=== PATIENT | female | born 1985 | race Caucasian/White ===

== ENCOUNTER 2018-02-04 12:12 | Inpatient (IN) | payer BC ==
[2018-02-04] MEDS ORDERED: Lactated Ringers 500 ML IV ONE (12:29)
[2018-02-04] MEDS ORDERED: Misoprostol 400 MCG (4 X 100 MCG TAB) RECTAL PRN (12:29)
[2018-02-04] MEDS ORDERED: Calcium Carbonate 500 MG Tab.Chew PO PRN (12:29)
[2018-02-04] MEDS ORDERED: Sodium Chloride 0.9% 10 ML Syringe FLUSH PRN (12:29)
[2018-02-04] MEDS ORDERED: Misoprostol 25 MCG (1/4 of 100 MCG) Tab VAG PRN (12:29)
[2018-02-04] MEDS ORDERED: fentaNYL 100 MCG/2 ML SDV IVPUSH PRN (12:29)
[2018-02-04] MEDS ORDERED: Tranexamic Acid 1,000 MG in Sodium Chloride 0.9% 100 ML IV PRN (12:29)
[2018-02-04] MEDS ORDERED: Lidocaine 1% 30 ML SDV INJECT PRN (12:29)
[2018-02-04] MEDS ORDERED: Ondansetron 4 MG/2 ML SDV IV PRN (12:29)
[2018-02-04] MEDS ORDERED: Carboprost Tromethamine 250 MCG/1 ML Amp IM PRN (12:29)
[2018-02-04] MEDS ORDERED: Methylergonovine 0.2 MG/1 ML Amp IM PRN (12:29)
[2018-02-04] MEDS ORDERED: Oxytocin/Normal Saline 30 UNIT/500 ML BAG IV SCH (12:30)
--- NOTE | 2018-02-04 12:40 | PCM.LDHP ---
L&D History of Present Illness - General Date of Service: 02/04/18 Admit Problem/Dx: Patient Status Order with Admit Dx/Problem 02/04/18 12:30 Patient Status [ADT] Routine Admission Diagnosis/Problem Admission Diagnosis/Problem care Source of Information: Patient History Limitations: Reports: No Limitations - History of Present Illness Introduction:: 32-year-old at 39w5d presents from clinic for admission for IOL. Patient has been having headaches persistently over the past 5 days. Her blood pressure has also started to increase. She had a reading last night (taken by a lock up worker) of 140/100. In clinic, her BP was 138/92. Urine was negative for protein; however, based on headache, worsening BP and gestational age, the decision was made to proceed with induction. has otherwise been uncomplicated. Baby has been active. Patient has had increased [place] contractions this morning. No vaginal bleeding or leaking of fluid. - Related Data Allergies/Adverse Reactions: Allergies Allergy/AdvReac Type Severity Reaction Status Date / Time No Known Allergies Allergy Verified 02/04/18 12:49 Home Medications: Home Meds Calcium Carbonate/Vitamin D3 [Calcium 500 mg Chewable Tablet] 2 tab.chew PO DAILY 02/04/18 [History] #103/Iron Fumarate/Fa [ ] 1 tab PO DAILY 02/04/18 [ History] Past Medical History Psychiatric History: Reports: Anxiety, Depression - Past Surgical History Head Surgeries/Procedures: Reports: None Social & Family History - Family History Cardiac: Reports: CAD (Maternal grandfather, Paternal grandmother, Paternal grandfather), High Cholesterol (Father), Hypertension (Father) Psychiatric: Reports: Depression (Sister) Endocrine/Metabolic: Reports: Osteoporosis (Mother, Maternal grandmother) Oncologic: Reports: Leukemia (Paternal Grandfather) H&P Review of Systems - Review of Systems: Review Of Systems: See Below General: Reports: No Symptoms HEENT: Reports: Headaches, Sinus Congestion Pulmonary: Reports: No Symptoms Cardiovascular: Reports: No Symptoms Gastrointestinal: Reports: No Symptoms Genitourinary: Reports: No Symptoms Musculoskeletal: Reports: No Symptoms Skin: Reports: No Symptoms L&D Exam - Exam Exam: See Below - OB Specific Heart Tones: Present Heart Tones per Min: 150 Presentation: Vertex - Rollins Score Rollins Score Cervix Position: Posterior Rollins Score Consistency: Soft Rollins Score Effacement: 51-70% Rollins Score Dilation: 1-2 cm Rollins Score Infant's Station: -1 ,0 Rollins Score Total: 7 - Exam General: Alert, Oriented Lungs: Clear to Auscultation, Normal Respiratory Effort Cardiovascular: Regular Rate, Regular Rhythm. No: Irregular Rhythm, Systolic Murmur, Diastolic Murmur Extremities: Pedal Edema (2+ to lower extremities bilaterally) Skin: Warm, Dry, Intact ( ) - Problem List (1) care in third trimester SNOMED Code(s): 840944554, 37183887, 69363557, 989922129, 660892996 ICD Code: Z34.93 - ENCNTR FOR SUPRVSN OF NORMAL PREG, UNSP, THIRD TRIMESTER Status: Acute Current Visit: Yes (2) Elevated blood pressure affecting in third trimester, antepartum SNOMED Code(s): 42950704, 39062406, 551789378 ICD Code: O16.3 - UNSPECIFIED MATERNAL HYPERTENSION, THIRD TRIMESTER Status : Acute Current Visit: Yes (3) Rh negative status during in third trimester SNOMED Code(s): 961404139 ICD Code: O09.893 - SUPERVISION OF OTHER HIGH RISK PREGNANCIES, THIRD TRIMESTER; Z67.91 - UNSPECIFIED BLOOD TYPE, RH NEGATIVE Status: Acute Current Visit: Yes Problem List Initiated/Reviewed/Updated: Yes Orders Last 24hrs: Active Orders 24 hr Category Date Time Status Patient Status [ADT] Routine ADT 02/04/18 12:30 Ordered Communication Order [RC] ASDIRECTED Care 02/04/18 12:30 Ordered Communication Order [RC] ASDIRECTED Care 02/04/18 12:30 Ordered Communication Order [RC] ASDIRECTED Care 02/04/18 12:30 Ordered Communication Order [RC] ASDIRECTED Care 02/04/18 12:30 Ordered Communication Order [RC] ASDIRECTED Care 02/04/18 12:30 Ordered Communication Order [RC] ASDIRECTED Care 02/04/18 12:30 Ordered Heart Tones [RC] PER UNIT ROUTINE Care 02/04/18 12:30 Ordered Non Stress Test [RC] PER UNIT ROUTINE Care 02/04/18 12:30 Ordered Notify Provider Vital Signs OB [RC] ASDIRECTED Care 02/04/18 12:30 Ordered Notify Provider [RC] PRN Care 02/04/18 12:30 Ordered Notify Provider [RC] PRN Care 02/04/18 12:30 Ordered Notify Provider [RC] PRN Care 02/04/18 12:30 Ordered Notify Provider [RC] STAT Care 02/04/18 12:30 Ordered Pump Management, Intrathecal [RC] ASDIRECTED Care 02/04/18 12:29 Ordered Up ad Quyen [RC] ASDIRECTED Care 02/04/18 12:30 Ordered Vaginal Exam [RC] PRN Care 02/04/18 12:30 Ordered Vital Signs [RC] PER UNIT ROUTINE Care 02/04/18 12:30 Ordered Clear Liquid Diet [DIET] Diet 02/04/18 Dinner Ordered Regular Diet [DIET] Diet 02/04/18 Lunch Ordered CBC W/O DIFF,HEMOGRAM [HEME] Routine Lab 02/04/18 12:30 Ordered Acetaminophen [Tylenol] Med 02/04/18 12:29 Ordered 650 mg PO Q4H PRN Calcium Carbonate [Tums] Med 02/04/18 12:29 Ordered 1,000 mg PO Q2HR PRN Carboprost Tromethamine [Hemabate DS] Med 02/04/18 12:29 Ordered 250 mcg IM ASDIRECTED PRN Lactated Ringers @ 125 MLS/HR(1000ml) Med 02/04/18 12:30 Ordered Lactated Ringers [Ringers, Lactated] 1,000 ml IV ASDIRECTED Lactated Ringers [Ringers, Lactated] 500 ml Med 02/04/18 12:29 Ordered IV .BOLUS Lidocaine 1% [Xylocaine-MPF 1%] Med 02/04/18 12:29 Ordered 10 ml INJECT ASDIRECTED PRN Methylergonovine [Methergine] Med 02/04/18 12:29 Ordered 0.2 mg IM ASDIRECTED PRN Ondansetron [Zofran] Med 02/04/18 12:29 Ordered 4 mg IV Q4H PRN Oxytocin 30 Units in NS @ 2 MUNITS/MIN(500ml) Med 02/04/18 12:30 Ordered Oxytocin/Normal Saline [Pitocin in NS 30 UNIT/500 ML] 30 unit in 500 ml IV TITRATE Sodium Chloride 0.9% [Saline Flush] Med 02/04/18 12:29 Ordered 10 ml FLUSH ASDIRECTED PRN Tranexamic Acid [Cyklokapron] 1,000 mg Med 02/04/18 12:29 Ordered Sodium Chloride 0.9% [Normal Saline] 100 ml IV ONETIME fentaNYL [Sublimaze] Med 02/04/18 12:29 Ordered 50 mcg IVPUSH Q1H PRN miSOPROStol [Cytotec] Med 02/04/18 12:29 Ordered 25 mcg VAG Q4H PRN miSOPROStol [Cytotec] Med 02/04/18 12:29 Ordered 800 mcg RECTAL ASDIRECTED PRN Saline Lock Insert [OM.PC] Routine Oth 02/04/18 12:30 Ordered Resuscitation Status Routine Resus Stat 02/04/18 12:29 Ordered Assessment/Plan Comment:: 32-year-old at 39w5d for elevated blood pressure and headache (not gestational HTN) 1. Admit to L&D for IOL 2. Place Cytotec when able 3. AROM when able. Patient would like to avoid pitocin if possible. If needed , will increase slowly. 4. Patient plans for intrathecal for pain management. 5. Monitor BP. Will obtain PIH labs if persistently elevatd. 6. Expectant management. Anticipate . Gail Torres MD
[2018-02-04] MEDS ORDERED: Nalbuphine 10 MG/1 ML Vial IV PRN (12:56)
[2018-02-04] MEDS ORDERED: Nalbuphine 10 MG/1 ML Vial IM PRN (12:56)
[2018-02-04] MEDS ORDERED: Bupivacaine 0.75%/D5W 2 ML Amp ONE (17:26)
[2018-02-04] MEDS ORDERED: EPINEPHrine 1 MG/ML SDV ONE (17:26)
[2018-02-04] MEDS ORDERED: fentaNYL 100 MCG/2 ML SDV ONE (17:26)
[2018-02-04] MEDS: Lactated Ringers 1,000 ML IV SCH ×2 (17:52→18:25)
--- NOTE | 2018-02-04 18:04 | PCM.SN ---
- Free Text/Narrative Note: Intrathecal. Sitting position, sterile prep and drape. 1% lidocaine w bicarb for skinwheal to L3 L4 interspace and L2 L3 interspace. Introducer and 24 ga pencan to L2 L3 x 2, L3 L4 x3 attempts. Pos CSF at L3 L4 interspace. 0.1 ml 1: 1000 pf Epi, 20 mcg pf sufenta, 30 mcg pf fentanyl, 6 mg of 0.75% pf bupivacaine and 0.4 ml pf ns injected after CSF aspiration. Pt to L lateral position. Procedure time 1725 to 1810
[2018-02-04] MEDS ORDERED: Famotidine 20 MG/2 ML SDV IVPUSH STA (19:36)
[2018-02-04] MEDS ORDERED: Simethicone 80 MG Tab.Chew PO PRN (22:01)
[2018-02-04] MEDS ORDERED: Benzocaine/Menthol 20%-0.5% Spray 56 GM Canister TOP PRN (22:01)
--- NOTE | 2018-02-04 22:10 | PCM.DEL ---
L & D Note - General Info Date of Service: 02/04/18 Mother's Due Date: 02/06/18 - Delivery Note Labor: Augmented by ARM Cervical Ripening Method: Misoprostil Delivery Outcome: Livebirth Infant Delivery Method: Spontaneous Vaginal Delivery-Single Presentation: Vertex Nuchal Cord: None Anesthesia Type: Local, Intrathecal Anesthetic: Lidocaine (Xylocaine) 1% Plain Local Anesthetic Volume: 4cc Amniotic Fluid Description: Clear Episiotomy Type: None Laceration: 2nd Degree, Vaginal Suture type: Vicryl Suture size: 3-0 Placenta: Intact, Spontaneous Cord: 3 Vessels Estimated Blood Loss: 200 Resuscitation Needed: No : Bulb Syringe, Stimulated, Warmed Score 1 min: 8 Score 5 min: 9 Delivery Comments (Free Text/Narrative):: 32-year-old, now , at 39w5d presented to L&D for induction of labor due to headaches and elevate BP without diagnosis of gestational hypertension. 25 mcg of Cytotec was placed. Patient progressed to 7 cm dilation over the next 5 hours. AROM was performed for large amount of clear fluid. Patient received an intrathecal for pain control. She progressed to complete dilation. After pushing for 10 minutes, patient delivered a viable male infant with Apgars of 8 and 9 at 1 and 5 minutes respectively. Baby was placed on mother's chest. Cord was left intact until pulsation ceased. Cord was then clamped x2 and cut. Placenta delivered approximately 8 minutes later and was noted to be intact. Pitocin was started per protocol. A superficial laceration at the apex of the labia minora was noted but was hemostatic so no repair was performed. A second degree vaginal laceration was repaired in the usual fashion. Uterus was noted to be firm, and bleeding was appropriate. Patient tolerated the procedure well , and there were no immediate complications. - General Info Date of Service: 02/04/18 - Patient Data Vitals - Most Recent: Last Vital Signs Temp 36.7 C 02/04/18 18:15 Pulse 81 02/04/18 18:30 Resp 18 02/04/18 18:15 BP 90/46 L 02/04/18 18:30 Pulse Ox 94 L 02/04/18 17:30 Weight - Most Recent: 127.459 kg Lab Results Last 24 Hours: Laboratory Results - last 24 hr 02/04/18 Range/Units 13:13 WBC 10.8 H (5.0-10.0) 10^3/uL RBC 4.37 (4.2-5.4) 10^6/uL Hgb 12.9 (12.0-16.0) g/dL Hct 38.1 (37.0-47.0) % MCV 87.2 (80-100) fL MCH 29.5 (27.0-34.0) pg MCHC 33.9 (33.0-35.0) g/dL Plt Count 259 (150-450) 10^3/uL Med Orders - Current: Current Medications Acetaminophen (Tylenol) 650 mg PO Q4H PRN PRN Reason: Pain (Mild 1-3) and fever Calcium Carbonate/Glycine (Tums) 1,000 mg PO Q2HR PRN PRN Reason: Indigestion Carboprost Tromethamine (Hemabate Ds) 250 mcg IM ASDIRECTED PRN PRN Reason: HEMORRHAGE Tranexamic Acid 1,000 mg/ (Sodium Chloride) 110 mls @ 660 mls/hr IV ONETIME PRN PRN Reason: Bleeding Oxytocin/Sodium Chloride (Pitocin In Ns 30 Unit/500 Ml) 30 unit in 500 mls @ 2 mls/hr IV TITRATE KATHERYN; Protocol Last Titration: 02/04/18 21:56 Dose: 250 munits/min, 250 mls/hr Methylergonovine Maleate (Methergine) 0.2 mg IM ASDIRECTED PRN PRN Reason: Hemorrhage Misoprostol (Cytotec) 800 mcg RECTAL ASDIRECTED PRN PRN Reason: Hemorrhage Misoprostol (Cytotec) 25 mcg VAG Q4H PRN PRN Reason: cervical ripening Last Admin: 02/04/18 13:31 Dose: 25 mcg Nalbuphine HCl (Nubain) 20 mg IM Q3H PRN PRN Reason: Pain Nalbuphine HCl (Nubain) 10 mg IV Q3H PRN PRN Reason: Pain Ondansetron HCl (Zofran) 4 mg IV Q4H PRN PRN Reason: Nausea/Vomiting Last Admin: 02/04/18 17:15 Dose: 4 mg Sodium Chloride (Saline Flush) 10 ml FLUSH ASDIRECTED PRN PRN Reason: Keep Vein Open Discontinued Medications Bupivacaine HCl/Dextrose (Marcaine 0.75% Spinal) Confirm Administered Dose 2 ml .ROUTE .STK-MED ONE Stop: 02/04/18 17:27 Epinephrine HCl (Adrenalin) Confirm Administered Dose 1 mg .ROUTE .STK-MED ONE Stop: 02/04/18 17:27 Famotidine (Pepcid) 20 mg IVPUSH ONETIME STA Stop: 02/04/18 19:37 Last Admin: 02/04/18 19:46 Dose: 20 mg Fentanyl (Sublimaze) 50 mcg IVPUSH Q1H PRN PRN Reason: Pain (moderate 4-6) Last Admin: 02/04/18 17:52 Dose: 50 mcg Fentanyl (Sublimaze) Confirm Administered Dose 100 mcg .ROUTE .STK-MED ONE Stop: 02/04/18 17:27 Lactated Ringer's (Ringers, Lactated) 500 mls @ 999 mls/hr IV .BOLUS ONE Stop: 02/04/18 12:59 Last Admin: 02/04/18 17:16 Dose: 999 mls/hr Lactated Ringer's (Ringers, Lactated) 1,000 mls @ 125 mls/hr IV ASDIRECTED KATHERYN Last Admin: 02/04/18 18:25 Dose: 125 mls/hr Lidocaine HCl (Xylocaine-Mpf 1%) 10 ml INJECT ASDIRECTED PRN PRN Reason: Perineal Repair Last Admin: 02/04/18 21:21 Dose: 10 ml Sodium Bicarbonate (Sodium Bicarbonate 4.2%) Confirm Administered Dose 5 meq .ROUTE .STK-MED ONE Stop: 02/04/18 17:27 Sufentanil Citrate (Sufenta) Confirm Administered Dose 50 mcg .ROUTE .STK-MED ONE Stop: 02/04/18 17:27 - Problem List & Annotations (1) care in third trimester SNOMED Code(s): 591472271, 55764558, 63083081, 716716552, 729029251 Code(s): Z34.93 - ENCNTR FOR SUPRVSN OF NORMAL PREG, UNSP, THIRD TRIMESTER Status: Acute Current Visit: Yes (2) Elevated blood pressure affecting in third trimester, antepartum SNOMED Code(s): 63662918, 72795089, 186683464 Code(s): O16.3 - UNSPECIFIED MATERNAL HYPERTENSION, THIRD TRIMESTER Status : Acute Current Visit: Yes (3) Rh negative status during in third trimester SNOMED Code(s): 119099976 Code(s): O09.893 - SUPERVISION OF OTHER HIGH RISK PREGNANCIES, THIRD TRIMESTER; Z67.91 - UNSPECIFIED BLOOD TYPE, RH NEGATIVE Status: Acute Current Visit: Yes (4) (normal spontaneous vaginal delivery) SNOMED Code(s): 84696265 Code(s): O80 - ENCOUNTER FOR FULL-TERM UNCOMPLICATED DELIVERY Status: Acute Current Visit: Yes (5) Obstetric vaginal laceration SNOMED Code(s): 057153014, 948746770 Code(s): O71.4 - OBSTETRIC HIGH VAGINAL LACERATION ALONE Status: Acute Current Visit: Yes - Problem List Review Problem List Initiated/Reviewed/Updated: Yes - My Orders Last 24 Hours: My Active Orders 02/04/18 12:29 Acetaminophen [Tylenol] 650 mg PO Q4H PRN Calcium Carbonate [Tums] 1,000 mg PO Q2HR PRN Carboprost Tromethamine [Hemabate DS] 250 mcg IM ASDIRECTED PRN Methylergonovine [Methergine] 0.2 mg IM ASDIRECTED PRN Ondansetron [Zofran] 4 mg IV Q4H PRN Sodium Chloride 0.9% [Saline Flush] 10 ml FLUSH ASDIRECTED PRN Tranexamic Acid [Cyklokapron] 1,000 mg Sodium Chloride 0.9% [Normal Saline] 100 ml IV ONETIME miSOPROStol [Cytotec] 25 mcg VAG Q4H PRN miSOPROStol [Cytotec] 800 mcg RECTAL ASDIRECTED PRN Resuscitation Status Routine 02/04/18 12:30 Patient Status [ADT] Routine Notify Provider Vital Signs OB [RC] ASDIRECTED Notify Provider [RC] PRN Notify Provider [RC] PRN Notify Provider [RC] STAT Oxytocin/Normal Saline [Pitocin in NS 30 UNIT/500 ML] 30 unit in 500 ml IV TITRATE Saline Lock Insert [OM.PC] Routine 02/04/18 12:56 Nalbuphine [Nubain] 10 mg IV Q3H PRN Nalbuphine [Nubain] 20 mg IM Q3H PRN 02/04/18 22:01 Up ad Quyen [RC] ASDIRECTED Vital Signs [RC] PFP Benzocaine/Menthol [Dermoplast Pain Relief [place]] See Dose Instructions TOP Q4H PRN Docusate Sodium [Colace] 100 mg PO BID PRN Ibuprofen [Motrin] 800 mg PO Q8H PRN Simethicone 80 mg PO Q4H PRN Assess Lochia [WOMSER] Per Unit Routine Assess Uterine Involution [WOMSER] Per Unit Routine Breast Pump [WOMSER] Per Unit Routine Ice Therapy [OM.PC] Per Unit Routine Perineal Care [OM.PC] Per Unit Routine Saline Lock Insert [OM.PC] Urgent Sitz Bath [OM.PC] Per Unit Routine 02/04/18 Lunch Regular Diet [DIET] 02/05/18 09:00 Vit with Ca/FA/Iron [ Plus Iron] 1 each PO DAILY - Assessment Assessment:: 32-year-old now status post at 39w5d - Plan Plan:: 1. Initiate routine orders 2. Mother plans to breastfeed 3. Monitor BP 4. Anticipate discharge 02/06/18 Gail Torres MD
[2018-02-04] MEDS: Docusate Sodium 100 MG Cap PO PRN (22:56)
[2018-02-04] MEDS: Ibuprofen 800 MG Tab PO PRN (22:56)
[2018-02-04] MEDS: Acetaminophen 325 MG Tab PO PRN (22:59)
[2018-02-05] MEDS: Acetaminophen 325 MG Tab PO PRN ×3 (05:48→17:21)
[2018-02-05] MEDS: Ibuprofen 800 MG Tab PO PRN ×2 (05:50→14:44)
[2018-02-05] MEDS: Docusate Sodium 100 MG Cap PO PRN (08:57)
[2018-02-05] MEDS: Prenatal Multivitamin with Calcium/Folic Acid/Iron Tab PO SCH (08:57)
--- NOTE | 2018-02-05 09:39 | PCM.PNPP ---
- General Info Date of Service: 02/05/18 Subjective Update: 32-year-old PPD#1 status post . Patient is doing well. Bleeding has decreased. She is sore but feels better with Tylenol/ibuprofen. Urinating without difficulty. Ambulating. Tolerating a general diet. No fever, chills, dizziness or lightheadedness. Functional Status: Reports: Pain Controlled, Tolerating Diet, Ambulating, Urinating - Review of Systems General: Reports: No Symptoms HEENT: Reports: No Symptoms Pulmonary: Reports: No Symptoms Cardiovascular: Reports: No Symptoms Gastrointestinal: Reports: No Symptoms Genitourinary: Reports: No Symptoms Musculoskeletal: Reports: Back Pain ( mild) Skin: Reports: No Symptoms - General Info Date of Service: 02/05/18 - Patient Data Vital Signs - Most Recent: Last Vital Signs Temp 36.7 C 02/05/18 09:06 Pulse 75 02/05/18 09:06 Resp 16 02/05/18 09:06 BP 131/82 02/05/18 09:06 Pulse Ox 100 02/05/18 09:06 Weight - Most Recent: 127.459 kg I&O - Last 24 Hours: Intake & Output 02/04/18 02/05/18 02/05/18 22:59 06:59 14:59 Intake Total 1500 Output Total 400 Balance 1100 Lab Results - Last 24 Hours: Laboratory Results - last 24 hr 02/04/18 Range/Units 13:13 WBC 10.8 H (5.0-10.0) 10^3/uL RBC 4.37 (4.2-5.4) 10^6/uL Hgb 12.9 (12.0-16.0) g/dL Hct 38.1 (37.0-47.0) % MCV 87.2 (80-100) fL MCH 29.5 (27.0-34.0) pg MCHC 33.9 (33.0-35.0) g/dL Plt Count 259 (150-450) 10^3/uL Med Orders - Current: Current Medications Acetaminophen (Tylenol) 650 mg PO Q4H PRN PRN Reason: Pain (Mild 1-3) and fever Last Admin: 02/05/18 05:48 Dose: 650 mg Benzocaine/Menthol (Dermoplast Pain Relief [place]) 0 gm TOP Q4H PRN PRN Reason: Perineal comfort measures Last Admin: 02/04/18 23:00 Dose: 1 spray Calcium Carbonate/Glycine (Tums) 1,000 mg PO Q2HR PRN PRN Reason: Indigestion Carboprost Tromethamine (Hemabate Ds) 250 mcg IM ASDIRECTED PRN PRN Reason: HEMORRHAGE Docusate Sodium (Colace) 100 mg PO BID PRN PRN Reason: Constipation Last Admin: 02/05/18 08:57 Dose: 100 mg Tranexamic Acid 1,000 mg/ (Sodium Chloride) 110 mls @ 660 mls/hr IV ONETIME PRN PRN Reason: Bleeding Oxytocin/Sodium Chloride (Pitocin In Ns 30 Unit/500 Ml) 30 unit in 500 mls @ 2 mls/hr IV TITRATE KATHERYN; Protocol Last Titration: 02/04/18 23:14 Dose: Infused Ibuprofen (Motrin) 800 mg PO Q8H PRN PRN Reason: Mild Pain or Fever Last Admin: 02/05/18 05:50 Dose: 800 mg Methylergonovine Maleate (Methergine) 0.2 mg IM ASDIRECTED PRN PRN Reason: Hemorrhage Misoprostol (Cytotec) 800 mcg RECTAL ASDIRECTED PRN PRN Reason: Hemorrhage Misoprostol (Cytotec) 25 mcg VAG Q4H PRN PRN Reason: cervical ripening Last Admin: 02/04/18 13:31 Dose: 25 mcg Nalbuphine HCl (Nubain) 20 mg IM Q3H PRN PRN Reason: Pain Nalbuphine HCl (Nubain) 10 mg IV Q3H PRN PRN Reason: Pain Ondansetron HCl (Zofran) 4 mg IV Q4H PRN PRN Reason: Nausea/Vomiting Last Admin: 02/04/18 17:15 Dose: 4 mg Prenat Multivit/[place]/Iron/Folic Ac ( Plus Iron) 1 each PO DAILY KATHERYN Last Admin: 02/05/18 08:57 Dose: 1 each Simethicone (Simethicone) 80 mg PO Q4H PRN PRN Reason: Gas Last Admin: 02/04/18 22:56 Dose: 80 mg Sodium Chloride (Saline Flush) 10 ml FLUSH ASDIRECTED PRN PRN Reason: Keep Vein Open Last Admin: 02/04/18 23:15 Dose: 10 ml Discontinued Medications Bupivacaine HCl/Dextrose (Marcaine 0.75% Spinal) Confirm Administered Dose 2 ml .ROUTE .STK-MED ONE Stop: 02/04/18 17:27 Last Admin: 02/05/18 01:43 Dose: Not Given Epinephrine HCl (Adrenalin) Confirm Administered Dose 1 mg .ROUTE .STK-MED ONE Stop: 02/04/18 17:27 Last Admin: 02/05/18 01:43 Dose: Not Given Famotidine (Pepcid) 20 mg IVPUSH ONETIME STA Stop: 02/04/18 19:37 Last Admin: 02/04/18 19:46 Dose: 20 mg Fentanyl (Sublimaze) 50 mcg IVPUSH Q1H PRN PRN Reason: Pain (moderate 4-6) Last Admin: 02/04/18 17:52 Dose: 50 mcg Fentanyl (Sublimaze) Confirm Administered Dose 100 mcg .ROUTE .STK-MED ONE Stop: 02/04/18 17:27 Last Admin: 02/05/18 01:44 Dose: Not Given Lactated Ringer's (Ringers, Lactated) 500 mls @ 999 mls/hr IV .BOLUS ONE Stop: 02/04/18 12:59 Last Admin: 02/04/18 17:16 Dose: 999 mls/hr Lactated Ringer's (Ringers, Lactated) 1,000 mls @ 125 mls/hr IV ASDIRECTED KATHERYN Last Admin: 02/04/18 18:25 Dose: 125 mls/hr Lidocaine HCl (Xylocaine-Mpf 1%) 10 ml INJECT ASDIRECTED PRN PRN Reason: Perineal Repair Last Admin: 02/04/18 21:21 Dose: 10 ml Sodium Bicarbonate (Sodium Bicarbonate 4.2%) Confirm Administered Dose 5 meq .ROUTE .STK-MED ONE Stop: 02/04/18 17:27 Last Admin: 02/05/18 01:43 Dose: Not Given Sufentanil Citrate (Sufenta) Confirm Administered Dose 50 mcg .ROUTE .STK-MED ONE Stop: 02/04/18 17:27 Last Admin: 02/05/18 01:44 Dose: Not Given - Infant Interaction Infant Disposition, : at Bedside Interaction: Holding Infant Feeding: Breastfed ; Nursed Well Support Person: - Recovery Exam Fundal Tone: Firm Fundal Level: At Umbilicus Fundal Placement: Midline Lochia Amount: Small Lochia Color: Rubra/Red Perineum Description: Intact, Minimal Bruising/Swelling Other Perinuem Description: REPAIR IN PROGRESS Episiotomy/Laceration: None Bladder Status: Voiding - Exam General: Alert, Oriented HEENT: Pupils Equal Lungs: Clear to Auscultation, Normal Respiratory Effort Cardiovascular: Regular Rate, Regular Rhythm, No Murmurs Extremities: Pedal Edema (Trace to lower extremities bilaterally) Skin: Warm, Dry, Intact - Problem List & Annotations (1) care in third trimester SNOMED Code(s): 745649298, 87476421, 89602212, 433168249, 169022849 Code(s): Z34.93 - ENCNTR FOR SUPRVSN OF NORMAL PREG, UNSP, THIRD TRIMESTER Status: Acute Current Visit: Yes (2) Elevated blood pressure affecting in third trimester, antepartum SNOMED Code(s): 59182600, 88526732, 190745184 Code(s): O16.3 - UNSPECIFIED MATERNAL HYPERTENSION, THIRD TRIMESTER Status : Acute Current Visit: Yes (3) Rh negative status during in third trimester SNOMED Code(s): 155407343 Code(s): O09.893 - SUPERVISION OF OTHER HIGH RISK PREGNANCIES, THIRD TRIMESTER; Z67.91 - UNSPECIFIED BLOOD TYPE, RH NEGATIVE Status: Acute Current Visit: Yes (4) (normal spontaneous vaginal delivery) SNOMED Code(s): 88675478 Code(s): O80 - ENCOUNTER FOR FULL-TERM UNCOMPLICATED DELIVERY Status: Acute Current Visit: Yes (5) Obstetric vaginal laceration SNOMED Code(s): 028718461, 988328683 Code(s): O71.4 - OBSTETRIC HIGH VAGINAL LACERATION ALONE Status: Acute Current Visit: Yes - Problem List Review Problem List Initiated/Reviewed/Updated: Yes - My Orders Last 24 Hours: My Active Orders 02/04/18 12:29 Acetaminophen [Tylenol] 650 mg PO Q4H PRN Calcium Carbonate [Tums] 1,000 mg PO Q2HR PRN Carboprost Tromethamine [Hemabate DS] 250 mcg IM ASDIRECTED PRN Methylergonovine [Methergine] 0.2 mg IM ASDIRECTED PRN Ondansetron [Zofran] 4 mg IV Q4H PRN Sodium Chloride 0.9% [Saline Flush] 10 ml FLUSH ASDIRECTED PRN Tranexamic Acid [Cyklokapron] 1,000 mg Sodium Chloride 0.9% [Normal Saline] 100 ml IV ONETIME miSOPROStol [Cytotec] 25 mcg VAG Q4H PRN miSOPROStol [Cytotec] 800 mcg RECTAL ASDIRECTED PRN Resuscitation Status Routine 02/04/18 12:30 Patient Status [ADT] Routine Notify Provider Vital Signs OB [RC] ASDIRECTED Oxytocin/Normal Saline [Pitocin in NS 30 UNIT/500 ML] 30 unit in 500 ml IV TITRATE Saline Lock Insert [OM.PC] Routine 02/04/18 12:56 Nalbuphine [Nubain] 10 mg IV Q3H PRN Nalbuphine [Nubain] 20 mg IM Q3H PRN 02/04/18 22:01 Up ad Quyen [RC] ASDIRECTED Vital Signs [RC] 08,20 Benzocaine/Menthol [Dermoplast Pain Relief [place]] See Dose Instructions TOP Q4H PRN Docusate Sodium [Colace] 100 mg PO BID PRN Ibuprofen [Motrin] 800 mg PO Q8H PRN Simethicone 80 mg PO Q4H PRN Assess Lochia [WOMSER] Per Unit Routine Assess Uterine Involution [WOMSER] Per Unit Routine Breast Pump [WOMSER] Per Unit Routine Ice Therapy [OM.PC] Per Unit Routine Perineal Care [OM.PC] Per Unit Routine Saline Lock Insert [OM.PC] Urgent Sitz Bath [OM.PC] Per Unit Routine 02/04/18 Lunch Regular Diet [DIET] 02/05/18 09:00 Vit with Ca/FA/Iron [ Plus Iron] 1 each PO DAILY - Assessment Assessment:: 32-year-old now PPD#1 status post at 39w5d - Plan Plan:: 1. Continue routine orders 2. 3. Anticipate discharge 02/06/18 Gail Torres MD
[2018-02-05] MEDS: Escitalopram 10 MG Tab PO SCH (14:45)
[2018-02-06] MEDS: Prenatal Multivitamin with Calcium/Folic Acid/Iron Tab PO SCH (08:57)
[2018-02-06] MEDS: Docusate Sodium 100 MG Cap PO PRN (08:57)
[2018-02-06] MEDS: Escitalopram 10 MG Tab PO SCH (08:58)
--- NOTE | 2018-02-06 09:13 | PCM.DCSUM1 ---
Discharge Summary - Hospital Course Free Text/Narrative:: 32-year-old PPD#2 status post at 39w5d Diagnosis: Stroke: No - Discharge Data Discharge Date: 02/06/18 Discharge Disposition: Home, Self-Care 01 Condition: Good - Discharge Diagnosis/Problem(s) (1) care in third trimester SNOMED Code(s): 588775387, [id number], 62087140, 865841964, [id number] ICD Code: Z34.93 - ENCNTR FOR SUPRVSN OF NORMAL PREG, UNSP, THIRD TRIMESTER Status: Acute Current Visit: Yes (2) Elevated blood pressure affecting in third trimester, antepartum SNOMED Code(s): 16062900, 69185636, 231366427 ICD Code: O16.3 - UNSPECIFIED MATERNAL HYPERTENSION, THIRD TRIMESTER Status : Acute Current Visit: Yes (3) Rh negative status during in third trimester SNOMED Code(s): 768542465 ICD Code: O09.893 - SUPERVISION OF OTHER HIGH RISK PREGNANCIES, THIRD TRIMESTER; Z67.91 - UNSPECIFIED BLOOD TYPE, RH NEGATIVE Status: Acute Current Visit: Yes (4) (normal spontaneous vaginal delivery) SNOMED Code(s): 38755947 ICD Code: O80 - ENCOUNTER FOR FULL-TERM UNCOMPLICATED DELIVERY Status: Acute Current Visit: Yes (5) Obstetric vaginal laceration SNOMED Code(s): 428195694, 928012467 ICD Code: O71.4 - OBSTETRIC HIGH VAGINAL LACERATION ALONE Status: Acute Current Visit: Yes - Patient Summary/Data Operative Procedure(s) Performed: None Complications: None Consults: Consultations 02/05/18 13:17 Consult to Grocery Specialist [CONS] Routine Labs Pending at D/C: None Recommended Follow-up Testing/Procedures: None Planned Operative Procedure(s) after DC: None Hospital Course: Unremarkable. Please see subjective section. - Patient Instructions Diet: Usual Diet as Tolerated Activity: As Tolerated, No Lifting Over 20 Pounds Driving: May Drive Today Showering/Bathing: May Shower Notify Provider of: Fever, Increased Pain, Swelling and Redness - Discharge Plan *PRESCRIPTION DRUG MONITORING PROGRAM REVIEWED*: Not Applicable *COPY OF PRESCRIPTION DRUG MONITORING REPORT IN PATIENT CUONG: Not Applicable Prescriptions/Med Rec: Escitalopram [Lexapro] 10 mg PO DAILY #30 tablet Home Medications: Home Meds Calcium Carbonate [Tums] 200 mg PO QID PRN 02/04/18 [History] Calcium Carbonate/Vitamin D3 [Calcium 500 mg Chewable Tablet] 2 tab.chew PO DAILY 02/04/18 [History] Omeprazole Magnesium [Prilosec Otc] 20 mg PO DAILY 02/04/18 [History] #103/Iron Fumarate/Fa [ ] 1 tab PO DAILY 02/04/18 [ History] Acetaminophen [Tylenol] 650 mg PO Q4H PRN tablet 02/06/18 [Rx] Docusate Sodium [Colace] 100 mg PO BID PRN cap 02/06/18 [Rx] Escitalopram [Lexapro] 10 mg PO DAILY #30 tablet 02/06/18 [Rx] Ibuprofen [Motrin] 800 mg PO Q8H PRN tablet 02/06/18 [Rx] Referrals: Gail Torres MD [Primary Care Provider] - (6-8 weeks for routine visit) - Discharge Summary/Plan Comment DC Time >30 min.: No Discharge Summary/Plan Comment: Discharge patient home. Continue Lexapro 10 mg daily. Patient will let me know if she continues to have nasal congestion on Friday at baby's weight check. Reasons to return or present to the ED were reviewed with the patient, and all questions were answered. - General Info Date of Service: 02/06/18 Subjective Update: 32-year-old PPD#2 status post . Patient is doing well. Bleeding continues to decrease. Lexapro was started yesterday as patient does have a history of depression with her first . She is overall feeling well. No dizziness or lightheadedness. No nausea, vomiting, fever or chills. No new headaches. She is ambulating and tolerating a general diet. Urinating without difficulty. is going fairly well. Patient reports nasal congestion and ear pressure which has now been going on for 6-7 days. It may be a little worse since being admitted to the hospital. No concerns per nursing or per patient. Functional Status: Reports: Pain Controlled, Tolerating Diet, Ambulating, Urinating - Review of Systems General: Reports: No Symptoms HEENT: Reports: No Symptoms Pulmonary: Reports: No Symptoms Cardiovascular: Reports: No Symptoms Gastrointestinal: Reports: No Symptoms Genitourinary: Reports: No Symptoms Musculoskeletal: Reports: No Symptoms - Patient Data Vitals - Most Recent: Last Vital Signs Temp 36.6 C 02/06/18 08:00 Pulse 81 02/06/18 08:00 Resp 16 02/06/18 08:00 BP 128/90 02/06/18 08:00 Pulse Ox 99 02/06/18 08:00 Weight - Most Recent: 127.459 kg I&O - Last 24 hours: Intake & Output 02/05/18 02/06/18 02/06/18 22:59 06:59 14:59 Intake Total 1150 Balance 1150 Med Orders - Current: Current Medications Acetaminophen (Tylenol) 650 mg PO Q4H PRN PRN Reason: Pain (Mild 1-3) and fever Last Admin: 02/05/18 17:21 Dose: 650 mg Benzocaine/Menthol (Dermoplast Pain Relief [place]) 0 gm TOP Q4H PRN PRN Reason: Perineal comfort measures Last Admin: 02/04/18 23:00 Dose: 1 spray Calcium Carbonate/Glycine (Tums) 1,000 mg PO Q2HR PRN PRN Reason: Indigestion Carboprost Tromethamine (Hemabate Ds) 250 mcg IM ASDIRECTED PRN PRN Reason: HEMORRHAGE Docusate Sodium (Colace) 100 mg PO BID PRN PRN Reason: Constipation Last Admin: 02/06/18 08:57 Dose: 100 mg Escitalopram Oxalate (Lexapro) 10 mg PO DAILY KATHERYN Last Admin: 02/06/18 08:58 Dose: 10 mg Tranexamic Acid 1,000 mg/ (Sodium Chloride) 110 mls @ 660 mls/hr IV ONETIME PRN PRN Reason: Bleeding Oxytocin/Sodium Chloride (Pitocin In Ns 30 Unit/500 Ml) 30 unit in 500 mls @ 2 mls/hr IV TITRATE KATHERYN; Protocol Last Titration: 02/04/18 23:14 Dose: Infused Ibuprofen (Motrin) 800 mg PO Q8H PRN PRN Reason: Mild Pain or Fever Last Admin: 02/05/18 14:44 Dose: 800 mg Methylergonovine Maleate (Methergine) 0.2 mg IM ASDIRECTED PRN PRN Reason: Hemorrhage Misoprostol (Cytotec) 800 mcg RECTAL ASDIRECTED PRN PRN Reason: Hemorrhage Misoprostol (Cytotec) 25 mcg VAG Q4H PRN PRN Reason: cervical ripening Last Admin: 02/04/18 13:31 Dose: 25 mcg Nalbuphine HCl (Nubain) 20 mg IM Q3H PRN PRN Reason: Pain Nalbuphine HCl (Nubain) 10 mg IV Q3H PRN PRN Reason: Pain Ondansetron HCl (Zofran) 4 mg IV Q4H PRN PRN Reason: Nausea/Vomiting Last Admin: 02/04/18 17:15 Dose: 4 mg Prenat Multivit/[place]/Iron/Folic Ac ( Plus Iron) 1 each PO DAILY KATHERYN Last Admin: 02/06/18 08:57 Dose: 1 each Simethicone (Simethicone) 80 mg PO Q4H PRN PRN Reason: Gas Last Admin: 02/04/18 22:56 Dose: 80 mg Sodium Chloride (Saline Flush) 10 ml FLUSH ASDIRECTED PRN PRN Reason: Keep Vein Open Last Admin: 02/04/18 23:15 Dose: 10 ml Discontinued Medications Bupivacaine HCl/Dextrose (Marcaine 0.75% Spinal) Confirm Administered Dose 2 ml .ROUTE .STK-MED ONE Stop: 02/04/18 17:27 Last Admin: 02/05/18 01:43 Dose: Not Given Epinephrine HCl (Adrenalin) Confirm Administered Dose 1 mg .ROUTE .STK-MED ONE Stop: 02/04/18 17:27 Last Admin: 02/05/18 01:43 Dose: Not Given Famotidine (Pepcid) 20 mg IVPUSH ONETIME STA Stop: 02/04/18 19:37 Last Admin: 02/04/18 19:46 Dose: 20 mg Fentanyl (Sublimaze) 50 mcg IVPUSH Q1H PRN PRN Reason: Pain (moderate 4-6) Last Admin: 02/04/18 17:52 Dose: 50 mcg Fentanyl (Sublimaze) Confirm Administered Dose 100 mcg .ROUTE .STK-MED ONE Stop: 02/04/18 17:27 Last Admin: 02/05/18 01:44 Dose: Not Given Lactated Ringer's (Ringers, Lactated) 500 mls @ 999 mls/hr IV .BOLUS ONE Stop: 02/04/18 12:59 Last Admin: 02/04/18 17:16 Dose: 999 mls/hr Lactated Ringer's (Ringers, Lactated) 1,000 mls @ 125 mls/hr IV ASDIRECTED KATHERYN Last Admin: 02/04/18 18:25 Dose: 125 mls/hr Lidocaine HCl (Xylocaine-Mpf 1%) 10 ml INJECT ASDIRECTED PRN PRN Reason: Perineal Repair Last Admin: 02/04/18 21:21 Dose: 10 ml Sodium Bicarbonate (Sodium Bicarbonate 4.2%) Confirm Administered Dose 5 meq .ROUTE .STK-MED ONE Stop: 02/04/18 17:27 Last Admin: 02/05/18 01:43 Dose: Not Given Sufentanil Citrate (Sufenta) Confirm Administered Dose 50 mcg .ROUTE .Thermal [employer]-FlexScore ONE Stop: 02/04/18 17:27 Last Admin: 02/05/18 01:44 Dose: Not Given - Exam General: Reports: Alert, Oriented HEENT: Reports: Mucous Membr. Moist/[place], Other (TM normal bilaterally) Lungs: Reports: Clear to Auscultation, Normal Respiratory Effort Cardiovascular: Reports: Regular Rate, Regular Rhythm, No Murmurs GI/Abdominal Exam: Soft, Non-Tender Extremities: Pedal Edema (Trace to lower extremities bilaterally) Skin: Reports: Warm, Dry, Intact
[2018-02-06] MEDS ORDERED: fentaNYL 100 MCG/2 ML SDV ITHECAL ONE (11:21)
[2018-02-06] MEDS ORDERED: EPINEPHrine 1 MG/ML SDV IV ONE (11:21)
[2018-02-06] MEDS ORDERED: Bupivacaine 0.75%/D5W 2 ML Amp INJECT ONE (11:21)
== END 2018-02-06 13:25 | disposition home or self-care (01) | DRG 560 ==
LOC: DL.OBCHECK 12:12 → DL.OB 12:34 → OBSVTOIN 21:11 → DL.OB 21:11
PROVIDERS: ADMIT Family Medicine; ATTEND Family Medicine
PROC: 3E033VJ Introduction of Other Hormone into Peripheral Vein, Percutaneous Approach (ICD-10-PCS; principal; 2018-02-04)
PROC: 10E0XZZ Delivery of Products of Conception, External Approach (ICD-10-PCS; 2018-02-04)
PROC: 0KQM0ZZ Repair Perineum Muscle, Open Approach (ICD-10-PCS; 2018-02-04)
PROC: 10907ZC Drainage of Amniotic Fluid, Therapeutic from Products of Conception, Via Natural or Artificial Opening (ICD-10-PCS; 2018-02-04)
PROC: 3E0R3BZ Introduction of Anesthetic Agent into Spinal Canal, Percutaneous Approach (ICD-10-PCS; 2018-02-04)
DX: O26.893 Other specified pregnancy related conditions, third trimester (principal); Z37.0 Single live birth; Z3A.39 39 weeks gestation of pregnancy; R03.0 Elevated blood-pressure reading, without diagnosis of hypertension; R51 Headache; Z67.91 Unspecified blood type, Rh negative; O70.1 Second degree perineal laceration during delivery
CPT/HCPCS: 36415; 59300; 59409; 85027; A9270-GY; J0171; J2405; J2590; J3010; J3490; J7050; J7120